=== PATIENT | female | born 1975 | race American Indian/Alaskan Native ===

== ENCOUNTER 2018-09-16 15:41 | Emergency (ER) | payer MEDICARE, OTHER ==
[2018-09-16 15:42] VITALS: BMI 23.3
--- NOTE | 2018-09-16 15:50 | C.PDOC ---
History Of Present Illness 43 year old female is brought to the ED by ambulance for unknown. Upon ED arrival, patient is argumentative, confrontational, and physically abusive with ED staff. Patient has history of alcohol abuse and admits to alcohol use today. Upon further questioning, patient states she wants sutures removed from her right eyebrow, which were placed four days ago. Additional history obtained via insurance sales supervisor because patient is deaf/mute. 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 History/Exam Limitations: intoxication, other (patient is deaf/mute ) Onset/Duration Of Symptoms: Unknown Current Symptoms Are (Timing): Still Present Additional History Per: Patient Past Medical History Reviewed: Historical Data, Nursing Documentation, Vital Signs - Medical History PMH: No Chronic Diseases Surgical History: No Surg Hx Family History: States: Unknown Family Hx - Social History Hx Alcohol Use: No Hx Substance Use: No - Immunization History Hx Tetanus Toxoid Vaccination: No Hx Influenza Vaccination: No Hx Pneumococcal Vaccination: No Review Of Systems Psych: Positive for: Other (EtOH intoxication ) Physical Exam - Physical Exam Appears: Non-toxic, No Acute Distress, Other (argumentative, confrontational, patient is deaf/mute ) Skin: Normal Color, Warm, Dry Head: Atraumatic, Normacephalic, Other (above right eyebrow: nicely healed stellate wound with 5-7 interrupted sutures of 5-0 and 6-0 nylon. no cellulitis, no fluctuance ) Eye(s): bilateral: Normal Inspection Oral Mucosa: Moist, Other (alcohol on breath ) Extremity: Normal ROM Neurological/Psych: Other (arousable to touch and verbal stimuli ) ED Course And Treatment O2 Sat by Pulse Oximetry: 100 (on RA) Pulse Ox Interpretation: Normal Medical Decision Making Medical Decision Making: alcohol abuse suture removal above R eyebrow Disposition Doctor Will See Patient In The: Office Counseled Patient/Family Regarding: Studies Performed, Diagnosis - Disposition Referrals: Alcoholics Anonymous [Outside] [facility] [Outside] [facility] [Outside] [facility] [Outside] [facility] [Outside] Disposition: HOME/ ROUTINE Disposition Time: 15:49 Condition: GOOD Additional Instructions: seek counseling for your alcohol abuse issues Instructions: Stitches Removal Forms: [facility] (Bengali) - Clinical Impression Clinical Impression: Substance abuse, Visit for suture removal - Scribe Statement The provider has reviewed the documentation as recorded by the Scribe (Alanis Benitez) Provider Attestation: All medical record entries made by the Scribe were at my direction and personally dictated by me. I have reviewed the chart and agree that the record accurately reflects my personal performance of the history, physical exam, medical decision making, and the department course for this patient. I have also personally directed, reviewed, and agree with the discharge instructions and disposition.
[2018-09-16 16:05] VITALS: BP 131/82; PULSE 98; RESP 16; TEMP 98.2; O2SAT 100
== END 2018-09-16 16:32 | disposition home or self-care (01) ==
LOC: C.ER 15:41
DX: F10.10 Alcohol abuse, uncomplicated (principal); Y90.9 Presence of alcohol in blood, level not specified; Z48.02 Encounter for removal of sutures